=== PATIENT | female | born 1995 | race Caucasian/White ===

== ENCOUNTER 2017-02-28 10:00 | Inpatient (IN) | payer OTHER ==
[~2017-02-28] VITALS: Ht 165.1 cm; Wt 97.5 kg
[~2017-02-28 10:00] MED LIST: DSS100 PO; FERR-89 PO; IBUP-2071 PO; PREN1TAB80 PO; TYL3 PO
[2017-02-28] MEDS ORDERED: RINGERS SOLUTION,LACTATED 1,000 ML IV ONE (10:39)
[2017-02-28] MEDS ORDERED: CITRIC ACID/SODIUM CITRATE 30 ML SOLUTION UDCUP PO ONE (10:45)
[2017-02-28] MEDS ORDERED: METOCLOPRAMIDE HCL 5 MG/ML 2 ML VIAL IVP ONE (10:45)
[2017-02-28 11:14] LABS: BASOPHILS % (AUTO) 0.4 % (0.0-2.0); EOSINOPHILS % (AUTO) 0.5 % (1.0-6.0); HEMATOCRIT 24.6 % (36-46); HEMOGLOBIN 7.6 g/dL (12.0-16.0); LYMPHOCYTES # (AUTO) 2.2 K/uL (1.0-4.8); LYMPHOCYTES % (AUTO) 25.5 % (22.0-44.0); MEAN CORPUSCULAR HEMOGLOBIN 18.7 pg (26.0-34.0); MEAN CORPUSCULAR HGB CONC 30.7 G/dL (31.0-37.0); MEAN CORPUSCULAR VOLUME 61 fL (80-100); MONOCYTES # (AUTO) 0.6 K/uL (0.1-1.0); MONOCYTES % (AUTO) 7.2 % (2.0-9.0); NEUTROPHILS # (AUTO) 5.8 K/uL (1.8-7.7); NEUTROPHILS % (AUTO) 66.4 % (40.0-70.0); PLATELET COUNT (AUTO) 295 K/uL (150-450); RED BLOOD CELL COUNT(AUTO) 4.04 MIL/uL (4.00-5.20); RED CELL DISTRIBUTION WIDTH 22.9 % (11.5-14.5); WHITE BLOOD COUNT (AUTO) 8.7 K/uL (4.5-11.0)
[2017-02-28] MEDS ORDERED: MORPHINE SULFATE/PF 0.5 MG/ML 10 ML AMP ONE (11:51)
[2017-02-28] MEDS ORDERED: ACETAMINOPHEN 1000 MG/ISO-OSM 100 ML IV ONE ×2 (11:51→13:00)
[2017-02-28] MEDS ORDERED: FentaNYL CITRATE-PF 100 MCG/2 ML VIAL ONE (11:51)
[2017-02-28 11:55] VITALS: BP 114/74
[2017-02-28] MEDS ORDERED: 0.9% SODIUM CHLORIDE 10 ML VIAL IVP ONE (12:00)
[2017-02-28] MEDS ORDERED: EPHEDrine SULFATE 50 MG/ML VIAL IM ONE (12:00)
[2017-02-28] MEDS ORDERED: ONDANSETRON HCL 4 MG/2 ML VIAL IVP ONE (12:00)
[2017-02-28 12:37] LABS: RBC MORPHOLOGY COMMENT ABNORMAL RBC MORPH
[2017-02-28] MEDS ORDERED: MORPHINE SULFATE 2 MG/ML SYRINGE IVP PRN ×2 (13:00)
[2017-02-28] MEDS ORDERED: DEXAMETHASONE SOD PHOS 4 MG/ML VIAL IVP PRN (13:00)
[2017-02-28] MEDS ORDERED: MORPHINE SULFATE 10 MG/ML SYRINGE IVP PRN ×2 (13:00)
[2017-02-28] MEDS ORDERED: MEPERIDINE-PF 25 MG/ML SYRINGE IVP PRN (13:00)
[2017-02-28] MEDS ORDERED: ONDANSETRON HCL 4 MG/2 ML VIAL IVP PRN ×2 (13:00)
[2017-02-28] MEDS ORDERED: NALOXONE HCL 0.4 MG/ML VIAL IVP PRN (13:00)
[2017-02-28] MEDS ORDERED: FentaNYL CITRATE-PF 100 MCG/2 ML VIAL IVP PRN ×4 (13:00)
[2017-02-28] MEDS ORDERED: DiphenhydrAMINE HCL 50 MG/ML VIAL IVP PRN ×2 (13:00)
[2017-02-28] MEDS ORDERED: KETOROLAC TROMETHAMINE 30 MG/ML VIAL IVP ONE (13:00)
[2017-02-28] MEDS ORDERED: NALBUPHINE HCL 10 MG/ML VIAL IVP PRN ×3 (13:00)
[2017-02-28] MEDS ORDERED: DiphenhydrAMINE HCL 50 MG/ML VIAL IM PRN (13:00)
[2017-02-28] MEDS ORDERED: GUM MASTIC/STORAX/MSAL/ALCOHOL LIQUID 0.67 ML VIAL TP ONE (13:13)
[2017-02-28] MEDS ORDERED: GLYCERIN/WITCH HAZEL LEAF 40 PADS JAR TP PRN (13:45)
[2017-02-28] MEDS ORDERED: DEXTROSE 5%-0.45% SODIUM CHL 1,000 ML IV SCH (13:45)
[2017-02-28] MEDS: OXYTOCIN 20 UNITS/LACT RINGERS 1,000 ML IV SCH ×2 (13:45→17:33)
[2017-02-28] MEDS ORDERED: OXYGEN THERAPY IH SCH ×4 (20:00)
[2017-02-28] MEDS: ACETAMINOPHEN 1000 MG/ISO-OSM 100 ML IV SCH (21:16)
[2017-03-01] MEDS ORDERED: MEASLES/MUMPS/RUBELLA VACCINE, LIVE 0.5 ML/VIAL SQ ONE (04:30)
[2017-03-01] MEDS: ACETAMINOPHEN 1000 MG/ISO-OSM 100 ML IV SCH (05:32)
[2017-03-01 05:49] LABS: BASOPHILS # (AUTO) 0.01 K/uL (0.00-0.20); BASOPHILS % (AUTO) 0.1 % (0.0-2.0); EOSINOPHILS % (AUTO) 1.14 % (1.0-6.0); LYMPHOCYTES # (AUTO) 2.1 K/uL (1.0-4.8); LYMPHOCYTES % (AUTO) 23.2 % (22.0-44.0); MEAN CORPUSCULAR HEMOGLOBIN 18.3 pg (26.0-34.0); MEAN CORPUSCULAR HGB CONC 29.7 G/dL (31.0-37.0); MEAN CORPUSCULAR VOLUME 62 fL (80-100); MONOCYTES # (AUTO) 0.7 K/uL (0.1-1.0); MONOCYTES % (AUTO) 8.1 % (2.0-9.0); NEUTROPHILS % (AUTO) 67.4 % (40.0-70.0); RED BLOOD CELL COUNT(AUTO) 3.58 MIL/uL (4.00-5.20); RED CELL DISTRIBUTION WIDTH 22.9 % (11.5-14.5); WHITE BLOOD COUNT (AUTO) 8.9 K/uL (4.5-11.0)
[2017-03-01 07:09] LABS: HEMOGLOBIN 6.5 g/dL (12.0-16.0)
[2017-03-01 07:10] LABS: RBC MORPHOLOGY COMMENT ABNORMAL RBC MORPH
[2017-03-01] MEDS ORDERED: FERROUS SULFATE 325 MG EC TABLET PO SCH (08:00)
[2017-03-01] MEDS: OxyCODONE HCL/ACETAMINOPHEN 5-325 MG TABLET PO PRN ×4 (08:03→21:57)
[2017-03-01] MEDS: IBUPROFEN 600 MG TABLET PO PRN ×2 (08:03→18:14)
[2017-03-01] MEDS: MAGNESIUM HYDROXIDE SUSPENSION 30 ML UDCUP PO SCH ×2 (08:03→21:00)
[2017-03-01] MEDS: SOD FERRIC GLUC COMPLX/SUCROSE 125 MG in SODIUM CHLORIDE 0.9% 100 ML IV SCH (11:34)
[2017-03-02] MEDS: IBUPROFEN 600 MG TABLET PO PRN ×3 (04:59→18:16)
[2017-03-02] MEDS: MAGNESIUM HYDROXIDE SUSPENSION 30 ML UDCUP PO SCH ×2 (08:33→21:00)
[2017-03-02] MEDS: OxyCODONE HCL/ACETAMINOPHEN 5-325 MG TABLET PO PRN ×2 (08:33→13:18)
[2017-03-02] MEDS ORDERED: SODIUM CHLORIDE 0.9% 50 ML ONE (11:26)
[2017-03-02] MEDS: SOD FERRIC GLUC COMPLX/SUCROSE 125 MG in SODIUM CHLORIDE 0.9% 100 ML IV SCH (11:29)
[2017-03-03] MEDS: IBUPROFEN 600 MG TABLET PO PRN ×2 (01:03→07:04)
[2017-03-03] MEDS ORDERED: SOD FERRIC GLUC COMPLX/SUCROSE 125 MG in SODIUM CHLORIDE 0.9% 100 ML IV ONE (08:00)
[2017-03-03] MEDS ORDERED: IBUP-2071 PO (11:04)
[2017-03-03] MEDS ORDERED: FERR-89 PO (11:07)
[2017-03-03] MEDS ORDERED: HYDR-309 PO (11:10)
== END 2017-03-03 11:40 | disposition home or self-care (01) | DRG 540 ==
LOC: OBSVTOIN 10:00 → 4S 10:00
PROVIDERS: ADMIT Obstetrics & Gynecology; ATTEND Obstetrics & Gynecology
PROC: 10D00Z1 Extraction of Products of Conception, Low, Open Approach (ICD-10-PCS; principal; 2017-02-28)
PROC: 3E0234Z Introduction of Serum, Toxoid and Vaccine into Muscle, Percutaneous Approach (ICD-10-PCS; 2017-03-01)
DX: O34.211 Maternal care for low transverse scar from previous cesarean delivery (principal); O77.0 Labor and delivery complicated by meconium in amniotic fluid; Z37.0 Single live birth; Z3A.39 39 weeks gestation of pregnancy; Z23 Encounter for immunization
CPT/HCPCS: 86850; 86900; 86901; 86920; 87081; 90707; J0131; J0690; J2274; J2405; J2765; J2916; J3010; J3490; J7050; J7120

== ENCOUNTER 2018-10-15 19:55 | Observation (INO) | payer MEDICAID ==
[~2018-10-15] VITALS: Ht 162.6 cm; Wt 107.0 kg
[~2018-10-15 19:55] MED LIST changes: -DSS100 PO; +HYDR-309 PO; -TYL3 PO
[2018-10-15 21:39] VITALS: BP 122/69
== END 2018-10-15 21:25 | disposition home or self-care (01) ==
LOC: 4S 19:55
PROVIDERS: ADMIT Obstetrics & Gynecology; ATTEND Obstetrics & Gynecology
DX: O99.89 Other specified diseases and conditions complicating pregnancy, childbirth and the puerperium (principal); M54.5 Low back pain; Z3A.35 35 weeks gestation of pregnancy
CPT/HCPCS: 81002; G0378

== ENCOUNTER 2018-11-08 12:05 | Observation (INO) | payer MEDICAID ==
[~2018-11-08] VITALS: Ht 162.6 cm; Wt 108.9 kg
== END 2018-11-08 13:00 | disposition home or self-care (01) ==
LOC: 4S 12:05
PROVIDERS: ADMIT Obstetrics & Gynecology; ATTEND Obstetrics & Gynecology
DX: O99.013 Anemia complicating pregnancy, third trimester (principal); Z3A.38 38 weeks gestation of pregnancy

== ENCOUNTER 2018-11-09 11:01 | Observation (INO) | payer MEDICAID ==
[2018-11-09] MEDS ORDERED: SOD FERRIC GLUC COMPLX/SUCROSE 125 MG in SODIUM CHLORIDE 0.9% 100 ML IV ONE (11:30)
== END 2018-11-09 12:00 | disposition home or self-care (01) ==
LOC: 4S 11:01
PROVIDERS: ADMIT Obstetrics & Gynecology; ATTEND Obstetrics & Gynecology
DX: O99.013 Anemia complicating pregnancy, third trimester (principal); Z3A.38 38 weeks gestation of pregnancy
CPT/HCPCS: 96365; G0378; J2916; J7050

== ENCOUNTER 2018-11-12 10:01 | Observation (INO) | payer MEDICAID ==
[~2018-11-12] VITALS: Ht 162.6 cm; Wt 109.8 kg
[2018-11-12 10:14] VITALS: BP 123/67
[2018-11-12] MEDS: SOD FERRIC GLUC COMPLX/SUCROSE 125 MG in SODIUM CHLORIDE 0.9% 100 ML IV ONE (10:45)
[2018-11-13] MEDS ORDERED: PREN-217 PO (10:06)
[2018-11-13] MEDS ORDERED: FERR325T22 PO (10:08)
[2018-11-13] MEDS ORDERED: DOCU-119 PO (10:09)
== END 2018-11-12 11:30 | disposition home or self-care (01) ==
LOC: 4S 10:01
PROVIDERS: ADMIT Obstetrics & Gynecology; ATTEND Obstetrics & Gynecology
DX: O48.0 Post-term pregnancy (principal); Z3A.40 40 weeks gestation of pregnancy
CPT/HCPCS: 96365; G0378; J2916; J7050

== ENCOUNTER 2018-11-13 08:24 | Inpatient (IN) | payer MEDICAID ==
[~2018-11-13] VITALS: Ht 162.6 cm; Wt 109.8 kg
[~2018-11-13 08:24] MED LIST changes: -HYDR-309 PO; -IBUP-2071 PO
[2018-11-13] MEDS ORDERED: RINGERS SOLUTION,LACTATED 1,000 ML IV ONE (09:29)
[2018-11-13] MEDS ORDERED: CefoTEtan DISOD 2 GM/DEXTROSE 50 ML IV ONE (09:30)
[2018-11-13] MEDS ORDERED: METOCLOPRAMIDE HCL 5 MG/ML 2 ML VIAL IVP ONE (09:30)
[2018-11-13] MEDS ORDERED: CITRIC ACID/SODIUM CITRATE 30 ML SOLUTION UDCUP PO ONE (09:30)
[2018-11-13 10:01] VITALS: BP 128/70
[2018-11-13] MEDS ORDERED: PREN-217 PO (10:06)
[2018-11-13] MEDS ORDERED: FERR325T22 PO (10:08)
[2018-11-13] MEDS ORDERED: DOCU-119 PO (10:09)
[2018-11-13 10:24] LABS: BASOPHILS % (AUTO) 0.4 % (0.0-2.0); EOSINOPHILS % (AUTO) 1.5 % (1.0-6.0); HEMATOCRIT 29.5 % (36-46); HEMOGLOBIN 8.9 g/dL (12.0-16.0); LYMPHOCYTES # (AUTO) 1.8 K/uL (1.0-4.8); LYMPHOCYTES % (AUTO) 18.4 % (22.0-44.0); MEAN CORPUSCULAR HEMOGLOBIN 19.7 pg (26.0-34.0); MEAN CORPUSCULAR HGB CONC 30.2 G/dL (31.0-37.0); MEAN CORPUSCULAR VOLUME 65 fL (80-100); MONOCYTES # (AUTO) 0.6 K/uL (0.1-1.0); MONOCYTES % (AUTO) 5.8 % (2.0-9.0); NEUTROPHILS # (AUTO) 7.1 K/uL (1.8-7.7); NEUTROPHILS % (AUTO) 73.9 % (40.0-70.0); PLATELET COUNT (AUTO) 290 K/uL (150-450); RED BLOOD CELL COUNT(AUTO) 4.52 MIL/uL (4.00-5.20); RED CELL DISTRIBUTION WIDTH 18.8 % (11.5-14.5)
[2018-11-13] MEDS ORDERED: TRANEXAMIC ACID 1,000 MG in DEXTROSE 5%-WATER 50 ML IV ONE (11:45)
[2018-11-13] MEDS ORDERED: MORPHINE SULFATE/PF 0.5 MG/ML 10 ML AMP ONE (12:08)
[2018-11-13] MEDS ORDERED: ACETAMINOPHEN 1000 MG/ISO-OSM 100 ML IV ONE (12:08)
[2018-11-13] MEDS ORDERED: FentaNYL CITRATE-PF 100 MCG/2 ML VIAL ONE (12:08)
[2018-11-13] MEDS ORDERED: BUPIVACAINE HCL/DEX-WATER/PF 0.75% 2 ML AMP ONE (12:08)
[2018-11-13] MEDS ORDERED: ONDANSETRON HCL 4 MG/2 ML VIAL IVP PRN ×2 (12:45→13:00)
[2018-11-13] MEDS ORDERED: DiphenhydrAMINE HCL 50 MG/ML VIAL IVP PRN ×2 (12:45→13:00)
[2018-11-13] MEDS ORDERED: DEXAMETHASONE SOD PHOS 4 MG/ML VIAL IVP PRN (12:45)
[2018-11-13] MEDS ORDERED: NALBUPHINE HCL 10 MG/ML VIAL IVP PRN ×3 (12:45→13:00)
[2018-11-13] MEDS ORDERED: NALOXONE HCL 0.4 MG/ML VIAL IVP PRN (13:00)
[2018-11-13] MEDS ORDERED: MORPHINE SULFATE 10 MG/ML SYRINGE IVP PRN (13:00)
[2018-11-13] MEDS ORDERED: FentaNYL CITRATE-PF 100 MCG/2 ML VIAL IVP PRN (13:00)
[2018-11-13] MEDS ORDERED: GLYCERIN/WITCH HAZEL LEAF 40 PADS JAR TP PRN ×2 (13:30→13:45)
[2018-11-13] MEDS ORDERED: OxyCODONE HCL/ACETAMINOPHEN 5-325 MG TABLET PO PRN ×4 (13:30→13:45)
[2018-11-13] MEDS ORDERED: DEXTROSE 5%-0.45% SODIUM CHL 1,000 ML IV SCH (13:36)
[2018-11-13] MEDS ORDERED: OXYTOCIN 20 UNITS/LACT RINGERS 1,000 ML IV SCH (13:36)
[2018-11-13] MEDS ORDERED: IBUPROFEN 600 MG TABLET PO PRN (13:45)
[2018-11-13] MEDS: OXYTOCIN 20 UNITS/LACT RINGERS 1,000 ML IV SCH ×3 (14:02→21:00)
[2018-11-13] MEDS: DEXTROSE 5%-0.45% SODIUM CHL 1,000 ML IV SCH (14:03)
[2018-11-13] MEDS: SOD FERRIC GLUC COMPLX/SUCROSE 125 MG in SODIUM CHLORIDE 0.9% 100 ML IV SCH (15:33)
[2018-11-13] MEDS ORDERED: OXYGEN THERAPY IH SCH ×3 (20:00)
[2018-11-13] MEDS: ACETAMINOPHEN 1000 MG/ISO-OSM 100 ML IV SCH (21:04)
[2018-11-14] MEDS ORDERED: EPHEDrine SULFATE 50 MG/ML VIAL IM ONE (05:18)
[2018-11-14] MEDS ORDERED: ONDANSETRON HCL 4 MG/2 ML VIAL IVP ONE (05:18)
[2018-11-14] MEDS ORDERED: OXYTOCIN 10 UNITS/ML VIAL IM ONE (05:18)
[2018-11-14] MEDS: ACETAMINOPHEN 1000 MG/ISO-OSM 100 ML IV SCH (05:18)
[2018-11-14] MEDS ORDERED: 0.9% SODIUM CHLORIDE 10 ML VIAL IVP ONE (05:18)
[2018-11-14 05:39] LABS: BASOPHILS % (AUTO) 0.3 % (0.0-2.0); EOSINOPHILS % (AUTO) 1.1 % (1.0-6.0); HEMATOCRIT 27.9 % (36-46); HEMOGLOBIN 8.4 g/dL (12.0-16.0); LYMPHOCYTES # (AUTO) 1.2 K/uL (1.0-4.8); LYMPHOCYTES % (AUTO) 15.2 % (22.0-44.0); MEAN CORPUSCULAR HEMOGLOBIN 20.1 pg (26.0-34.0); MEAN CORPUSCULAR HGB CONC 30.1 G/dL (31.0-37.0); MEAN CORPUSCULAR VOLUME 67 fL (80-100); MONOCYTES # (AUTO) 0.5 K/uL (0.1-1.0); MONOCYTES % (AUTO) 5.9 % (2.0-9.0); NEUTROPHILS # (AUTO) 6.3 K/uL (1.8-7.7); NEUTROPHILS % (AUTO) 77.5 % (40.0-70.0); PLATELET COUNT (AUTO)-OB 246 K/uL (150-450); RED CELL DISTRIBUTION WIDTH 18.7 % (11.5-14.5)
[2018-11-14] MEDS: DEXTROSE 5%-0.45% SODIUM CHL 1,000 ML IV SCH (05:41)
[2018-11-14] MEDS ORDERED: MAGNESIUM HYDROXIDE SUSPENSION 30 ML UDCUP PO SCH ×2 (09:00)
[2018-11-14] MEDS ORDERED: SOD FERRIC GLUC COMPLX/SUCROSE 125 MG in SODIUM CHLORIDE 0.9% 100 ML IV SCH (10:00)
[2018-11-14] MEDS: SOD FERRIC GLUC COMPLX/SUCROSE 125 MG in SODIUM CHLORIDE 0.9% 100 ML IV SCH (10:58)
[2018-11-14] MEDS: IBUPROFEN 600 MG TABLET PO PRN (11:04)
[2018-11-15 06:07] LABS: BASOPHILS % (AUTO) 0.2 % (0.0-2.0); EOSINOPHILS % (AUTO) 1.7 % (1.0-6.0); HEMATOCRIT 27.9 % (36-46); HEMOGLOBIN 8.4 g/dL (12.0-16.0); LYMPHOCYTES # (AUTO) 2.6 K/uL (1.0-4.8); LYMPHOCYTES % (AUTO) 27.9 % (22.0-44.0); MEAN CORPUSCULAR HEMOGLOBIN 20.4 pg (26.0-34.0); MEAN CORPUSCULAR HGB CONC 30.2 G/dL (31.0-37.0); MEAN CORPUSCULAR VOLUME 68 fL (80-100); MONOCYTES # (AUTO) 0.7 K/uL (0.1-1.0); MONOCYTES % (AUTO) 8.1 % (2.0-9.0); NEUTROPHILS # (AUTO) 5.7 K/uL (1.8-7.7); NEUTROPHILS % (AUTO) 62.1 % (40.0-70.0); PLATELET COUNT (AUTO)-OB 258 K/uL (150-450); RED BLOOD CELL COUNT(AUTO) 4.13 MIL/uL (4.00-5.20); RED CELL DISTRIBUTION WIDTH 18.7 % (11.5-14.5)
[2018-11-15] MEDS ORDERED: IBUP-2071 PO (08:48)
[2018-11-15] MEDS ORDERED: DSS100 PO (08:50)
[2018-11-15] MEDS ORDERED: PERCT PO (08:52)
[2018-11-15] MEDS: IBUPROFEN 600 MG TABLET PO PRN (09:23)
== END 2018-11-15 11:25 | disposition home or self-care (01) | DRG 540 ==
LOC: OBSVTOIN 11:30 → 4S 11:30
PROVIDERS: ADMIT Obstetrics & Gynecology; ATTEND Obstetrics & Gynecology
PROC: 10D00Z1 Extraction of Products of Conception, Low, Open Approach (ICD-10-PCS; principal; 2018-11-13)
PROC: 0UL70ZZ Occlusion of Bilateral Fallopian Tubes, Open Approach (ICD-10-PCS; 2018-11-13)
DX: O34.211 Maternal care for low transverse scar from previous cesarean delivery (principal); O69.81X0 Labor and delivery complicated by cord around neck, without compression, not applicable or unspecified; Z37.0 Single live birth; Z3A.39 39 weeks gestation of pregnancy; Z30.2 Encounter for sterilization
CPT/HCPCS: 86780; 86850; 86900; 86901; 87081; 88302; J0131; J0690; J2274; J2405; J2590; J2765; J2916; J3010; J3490; J7050; J7060; J7120